=== PATIENT | female | born 1995 | race American Indian/Alaskan Native ===

== ENCOUNTER 2017-02-04 15:44 | Emergency (ER) | payer SELFPAY | END 2017-02-04 15:45 | disposition left against medical advice (07) | LOC: ED 15:44 | DX: O26.891 Other specified pregnancy related conditions, first trimester (principal); R53.1 Weakness; Z3A.01 Less than 8 weeks gestation of pregnancy; Z53.21 Procedure and treatment not carried out due to patient leaving prior to being seen by health care provider ==

== ENCOUNTER 2017-09-20 11:44 | Outpatient (CLI) | payer MEDICAID ==
[2017-09-20] MEDS ORDERED: LACTATED RINGERS 1,000 ML IV ONE (14:00)
[2017-09-20 18:22] LABS: Hematocrit 36.4 % (30.3-42.9); Hemoglobin 11.8 gm/dl (10.1-14.3); Mean Corpuscular HGB Conc 32 % (30-34); Mean Corpuscular Hemoglobin 27 pg (28-32); Mean Corpuscular Volume 83 fl (79-97); Platelet Count 261 K/mm3 (140-440); Red Blood Count 4.38 M/mm3 (3.65-5.03); White Blood Count 5.9 K/mm3 (4.5-11.0)
[2017-09-20 18:29] LABS: Bilirubin,Urine NEG (Negative); Blood,Urine NEG (Negative); Ketones,Urine 80 mg/dL (Negative); Leukocyte Esterase,Urine NEG (Negative); Mucus,Urine 2+ /HPF; Nitrite,Urine NEG (Negative); Urobilinogen,Urine < 2.0 mg/dL (<2.0)
[2017-09-20 18:38] LABS: Alanine Aminotransferase 6 units/L (7-56); Albumin 3.3 g/dL (3.9-5); Albumin/Globulin Ratio 1.1 %; Alkaline Phosphatase 182 units/L (35-129); Anion Gap 24 mmol/L; BUN/Creatinine Ratio 9; Blood Urea Nitrogen 6 mg/dL (7-17); Calcium 9.3 mg/dL (8.4-10.2); Carbon Dioxide 16 mmol/L (22-30); Chloride 97.2 mmol/L (98-107); Glucose 57 mg/dL (65-100); Potassium 4.2 mmol/L (3.6-5.0); Sodium 133 mmol/L (137-145); Total Protein 6.4 g/dL (6.3-8.2)
[2017-09-20 19:14] VITALS: BP 109/57
== END 2017-09-20 20:20 | disposition home or self-care (01) ==
LOC: SPVWC 11:44 → TRG 11:44
PROVIDERS: ATTEND Obstetrics & Gynecology
DX: O47.1 False labor at or after 37 completed weeks of gestation (principal); Z3A.39 39 weeks gestation of pregnancy
CPT/HCPCS: 36415; 59025; 80053; 81001; 84439; 84443; 85027; 96360

== ENCOUNTER 2017-09-25 03:01 | Outpatient (CLI) | payer MEDICAID ==
[2017-09-25] MEDS ORDERED: VISTARIL PO ONE (04:23)
[2017-09-25] MEDS ORDERED: VISTARIL ONE (04:23)
[2017-09-25 05:07] VITALS: BP 102/68
== END 2017-09-25 04:24 | disposition home or self-care (01) ==
LOC: TRG 03:01
PROVIDERS: ATTEND Obstetrics & Gynecology
DX: O48.0 Post-term pregnancy (principal); Z3A.40 40 weeks gestation of pregnancy
CPT/HCPCS: Q0177

== ENCOUNTER 2017-09-27 05:37 | Inpatient (IN) | payer MEDICAID ==
[2017-09-27] MEDS ORDERED: LACTATED RINGERS 1,000 ML ONE (06:32)
--- NOTE | 2017-09-27 07:00 | History and Physical Report ---
History of Present Illness Date of examination: 09/27/17 Date of admission: 09/27/17 06:17 Chief complaint: Painful contractions History of present illness: 22-year-old at 40+5 weeks presents in active labor, she is a [facility] patient. course has been unremarkable per patient, GBS unknown. In triage, she is 3-4 cm dilated Past History Past Medical History: no pertinent history Past Surgical History: no surgical history [employer] History: chlamydia. denies: gonorrhea, hepatitis B, hepatitis C, HIV, syphilis, trichomonas Social history: single, full code. denies: smoking, alcohol abuse, prescription drug abuse, IV drug use - Obstetrical History Expected Date of Delivery: 09/22/17 Actual Gestation: 40 Week(s) 5 Day(s) : 2 Para: 0 Medications and Allergies Allergies Allergy/AdvReac Type Severity Reaction Status Date / Time coconut Allergy Anaphylaxis Verified 09/27/17 05:59 codeine Allergy N/V Verified 11/14/14 15:03 Home Medications Medication Instructions Recorded Confirmed Last Taken Type Ibuprofen [Motrin] 600 mg PO Q6H PRN #15 tablet 03/10/16 Unknown Rx Review of Systems Constitutional: no fever, no chills, no fatigue, no weakness, no lethargy Cardiovascular: no chest pain, no orthopnea, no palpitations, no syncope, no lightheadedness, no shortness of breath, no dyspnea on exertion, no high blood pressure Respiratory: no cough, no cough with sputum, no shortness of breath, no dyspnea on exertion Gastrointestinal: abdominal pain (Painful contractions), no nausea, no vomiting , no heartburn, no indigestion, no dyspepsia/bloating Genitourinary: contractions, no vaginal bleeding, no vaginal discharge, no leakage of fluid - Vital Signs Vital signs: Vital Signs Pulse BP Pulse Ox 92 H 116/81 100 09/27/17 05:55 09/27/17 05:55 09/27/17 05:55 Temp Pulse Resp BP Pulse Ox 97.4 F L 72 18 116/81 100 09/27/17 06:00 09/27/17 06:55 09/27/17 06:00 09/27/17 05:55 09/27/17 06:55 - Physical Exam Cardiovascular: Regular rate, Normal S1, Normal S2 Lungs: Positive: Clear to auscultation, Normal air movement Abdomen: Positive: normal appearance, soft. Negative: distention, tenderness, guarding, rigidity Genitourinary (Female): Positive: normal external genitalia Vulva: both: normal Vagina: Negative: discharge Uterus: Positive: enlarged (EFW ~ 3500) Adnexa: both: normal Extremities: Positive: normal Results All other labs normal. Assessment and Plan A: 22-year-old at 40 and 5 in active labor -Cat 1 tracing P: -Admit -Routine labs -Anticipate normal vaginal delivery - Patient Problems (1) 40 weeks gestation of Current Visit: Yes Status: Acute (2) Active labor at term Current Visit: Yes Status: Acute
[2017-09-27] MEDS ORDERED: PHENERGAN PO PRN ×2 (07:01→11:19)
[2017-09-27] MEDS ORDERED: BRETHINE IVP PRN (07:01)
[2017-09-27] MEDS ORDERED: NARCAN 0.4 MG/1 ML IV PRN (07:01)
[2017-09-27] MEDS ORDERED: BRETHINE SUB-Q PRN (07:01)
[2017-09-27] MEDS ORDERED: SUBLIMAZE IV PRN (07:01)
[2017-09-27] MEDS ORDERED: MINERAL OIL PO PRN (07:01)
[2017-09-27] MEDS ORDERED: ePHEDrine SULFATE IV PRN ×2 (07:01→10:37)
[2017-09-27] MEDS ORDERED: POLYCILLIN/NS 2 GM/100 ML 2 GM/100 ML BAG IV ONE (07:01)
[2017-09-27] MEDS ORDERED: XYLOCAINE 2% INFILTRATI ONE (07:01)
[2017-09-27] MEDS ORDERED: ZOFRAN IV PRN ×2 (07:01→11:19)
[2017-09-27] MEDS ORDERED: LACTATED RINGERS 1,000 ML IV SCH (08:00)
[2017-09-27] MEDS ORDERED: PITOCin/NS 20 UNIT/1000ML DRIP 20 UNITS/1,000 ML BAG IV SCH ×2 (08:00→12:00)
[2017-09-27] MEDS ORDERED: PITOCin/NS 30 UNIT/500ML 30 UNITS/500 ML BAG IV SCH ×2 (08:00)
[2017-09-27 08:01] LABS: Hematocrit 36.3 % (30.3-42.9); Hemoglobin 12.3 gm/dl (10.1-14.3); Mean Corpuscular HGB Conc 34 % (30-34); Mean Corpuscular Hemoglobin 28 pg (28-32); Mean Corpuscular Volume 82 fl (79-97); Platelet Count 298 K/mm3 (140-440); Red Blood Count 4.41 M/mm3 (3.65-5.03); Red Cell Distribution Width 13.8 % (13.2-15.2)
--- NOTE | 2017-09-27 09:30 | Progress Note ---
Assessment and Plan - Patient Problems (1) 40 weeks gestation of Current Visit: Yes Status: Acute (2) Active labor at term Current Visit: Yes Status: Acute Subjective - Subjective Date of service: 09/27/17 Interval history: Patient known 7 cm and -1 station. AROMed with clear fluid Patient reports: new complaints, loss of fluid, movement normal, contractions, no vaginal bleeding Objective - Vital Signs Vital Signs: Vital Signs - 12hr 09/27/17 09/27/17 09/27/17 05:55 06:00 06:05 Temperature 97.4 F L Pulse Rate 92 H 72 83 Respiratory 18 Rate Blood Pressure 116/81 O2 Sat by Pulse 100 99 100 Oximetry 09/27/17 09/27/17 09/27/17 06:10 06:15 06:20 Temperature Pulse Rate 89 82 95 H Respiratory Rate Blood Pressure O2 Sat by Pulse 100 100 100 Oximetry 09/27/17 09/27/17 09/27/17 06:25 06:30 06:35 Temperature Pulse Rate 78 100 H 91 H Respiratory Rate Blood Pressure O2 Sat by Pulse 100 100 100 Oximetry 09/27/17 09/27/17 09/27/17 06:40 06:45 06:50 Temperature Pulse Rate 87 89 75 Respiratory Rate Blood Pressure O2 Sat by Pulse 100 99 100 Oximetry 09/27/17 09/27/17 09/27/17 06:55 07:00 07:22 Temperature Pulse Rate 72 78 75 Respiratory Rate Blood Pressure 162/94 O2 Sat by Pulse 100 100 100 Oximetry 09/27/17 09/27/17 09/27/17 07:27 07:36 07:38 Temperature 98.7 F Pulse Rate 96 H 71 Respiratory 18 Rate Blood Pressure 131/85 O2 Sat by Pulse 100 Oximetry 09/27/17 09/27/17 09/27/17 07:39 07:53 08:07 Temperature Pulse Rate 71 72 75 Respiratory Rate Blood Pressure 132/84 111/60 116/57 O2 Sat by Pulse Oximetry 09/27/17 09/27/17 09/27/17 08:22 08:38 08:53 Temperature Pulse Rate 78 90 98 H Respiratory Rate Blood Pressure 152/95 178/112 175/105 O2 Sat by Pulse Oximetry - Exam FHR: category 1 Cervical Dilatation: 7 station: -1 - Labs Labs: Laboratory Results - last 24 hr 09/27/17 09/27/17 06:27 06:27 WBC 7.9 RBC 4.41 Hgb 12.3 Hct 36.3 MCV 82 MCH 28 MCHC 34 RDW 13.8 Plt Count 298 Blood Type O POSITIVE Antibody Screen Negative
[2017-09-27] MEDS ORDERED: NARCAN 2 MG/2 ML IV PRN (10:37)
--- NOTE | 2017-09-27 10:38 | Anesthesia Consultation ---
Anesthesia Consult and Med Hx Date of service: 09/27/17 - Airway Anesthetic Teeth Evaluation: Good ROM Head & Neck: Adequate Mental/Hyoid Distance: Adequate Mallampati Class: Class II Intubation Access Assessment: Probably Good - Pulmonary Exam CTA: Yes - Cardiac Exam Cardiac Exam: RRR - Pre-Operative Health Status ASA Pre-Surgery Classification: ASA2 Proposed Anesthetic Plan: Epidural, Spinal - Pulmonary Hx Asthma: No COPD: No Hx Pneumonia: No - Cardiovascular System Hx Hypertension: No Hx Heart Attack/AMI: No Hx Pacemaker: No Hx Internal Defibrillator: No - Central Nervous System Hx Seizures: No Hx Psychiatric Problems: No - Endocrine Hx Renal Disease: No Hx End Stage Renal Disease: No Hx Liver Disease: No Hx Hypothyroidism: No Hx Hyperthyroidism: No - Hematic Hx Anemia: No Hx Sickle Cell Disease: No - Other Systems Hx Alcohol Use: No Hx Obesity: Yes - Additional Comments Anesthesia Medical History Comments: +IUP
[2017-09-27] MEDS ORDERED: fentaNYL-BUPIV 2 MCG/ML-0.125% 200 MCG/100 ML BAG EPIDURAL SCH (11:00)
[2017-09-27] MEDS ORDERED: POLYCILLIN/NS 1 GM/50 ML 1 GM/50 ML BAG IV SCH (11:02)
--- NOTE | 2017-09-27 11:18 | Procedure Note ---
OB Delivery Note - Delivery Date of Delivery: 09/27/17 Surgeon: GUERITA MRA Estimated blood loss: 100cc - Vaginal Delivery presentation: vertex Delivery position: OA Intrapartum events: none Delivery induction: none Delivery augmentation: pitocin Delivery monitor: external FHT, external uterine Route of delivery: Delivery placenta: spontaneous Delivery cord: 3 umbilical vessels Episiotomy: none Delivery laceration: 1st degree Delivery repair: vicryl Anesthesia: epidural - Infant A at 1 minute: 8 at 5 minutes: 9 Gender: Male (time of delivery 11:09, infant weight 6 lbs. 8 oz. or 2938 g)
[2017-09-27] MEDS ORDERED: TUCKS PAD TP PRN (11:19)
[2017-09-27] MEDS ORDERED: DULCOLAX PR PRN (11:19)
[2017-09-27] MEDS ORDERED: BENADRYL PO PRN (11:19)
[2017-09-27] MEDS ORDERED: LANSINOH TP PRN (11:19)
[2017-09-27] MEDS ORDERED: PHENERGAN PR PRN (11:19)
[2017-09-27] MEDS ORDERED: ANUCORT-HC PR PRN (11:19)
[2017-09-27] MEDS ORDERED: NORCO 5/325 PO PRN (11:19)
[2017-09-27] MEDS ORDERED: MILK OF MAGNESIA PO PRN (11:19)
[2017-09-27] MEDS ORDERED: TYLENOL PO PRN (11:19)
[2017-09-27] MEDS ORDERED: SODIUM CHLORIDE FLUSH SYRINGE 10 ML IV NR (12:00)
[2017-09-27] MEDS ORDERED: SENOKOT S PO SCH (12:00)
[2017-09-27] MEDS: MOTRIN PO SCH ×2 (15:21→23:08)
[2017-09-27] MEDS: FEOSOL PO SCH (23:09)
[2017-09-27] MEDS: COLACE PO SCH (23:09)
[2017-09-28] LABS: Hematocrit 34.1 % (30.3-42.9); Hemoglobin 11.2 gm/dl (10.1-14.3)
[2017-09-28] MEDS: MOTRIN PO SCH ×3 (05:16→18:25)
--- NOTE | 2017-09-28 09:48 | Progress Note ---
Assessment and Plan A: PPD 1 - stable P: Continue routine PP orders Discharge in AM 09/29/17 F/U in 6 wks for PP exam Schedule appt in 1 week for Linch circumcision Subjective - Subjective Date of service: 09/28/17 Principal diagnosis: , PPD #1 Patient reports: appetite normal, voiding normally, pain well controlled, ambulating normally, no bowel movement : doing well, nursing well, bottle feeding Objective - Vital Signs Latest vital signs: Vital Signs Temp Pulse Resp BP BP Pulse Ox 09/28/17 08:00 97.9 F 66 18 107/61 09/27/17 17:02 98.2 F 67 20 140/86 100 09/27/17 12:35 89 122/81 09/27/17 12:30 69 116/72 09/27/17 12:25 78 110/71 09/27/17 12:20 92 H 111/68 09/27/17 12:15 82 116/77 09/27/17 12:10 71 108/56 09/27/17 12:05 82 108/67 09/27/17 12:00 83 108/55 09/27/17 11:55 88 100/61 09/27/17 11:50 81 114/62 09/27/17 11:45 82 114/60 09/27/17 11:40 88 109/56 09/27/17 11:35 88 111/65 09/27/17 11:30 95 H 109/59 09/27/17 11:25 100 H 114/56 09/27/17 11:20 91 H 117/56 09/27/17 11:06 105 H 100 09/27/17 11:01 95 H 100 09/27/17 10:56 85 100 09/27/17 10:53 94 H 108/57 09/27/17 10:51 87 111/60 100 09/27/17 10:49 87 111/57 09/27/17 10:47 77 104/52 09/27/17 10:46 76 100 09/27/17 10:45 78 108/57 09/27/17 10:44 82 106/52 09/27/17 10:42 103 H 93/46 09/27/17 10:41 110 H 99 09/27/17 10:39 86 120/63 09/27/17 10:36 97 H 145/73 100 01/01/18 10:34 91 H 152/82 09/27/17 10:31 85 139/72 09/27/17 10:30 94 H 142/74 100 09/27/17 09:53 87 143/70 Intake and Output 09/27/17 09/28/17 09/28/17 23:59 07:59 15:59 Intake Total 480 Output Total 1500 800 Balance -1020 -800 Intake: Oral 480 Output: Urine 1500 800 Void 1500 800 Other: Total, Intake Amount 240 Total, Output Amount 800 800 # Voids Void 1 - Exam Cardiovascular: Present: Regular rate, Normal S1, Normal S2, No murmurs Lungs: Present: Clear to auscultation, Normal air movement Abdomen: Present: normal appearance, soft Vulva: both: laceration/episiotomy (well approximated) Uterus: Present: normal, firm, fundal height below umbilicus Extremities: Present: normal Deep Tendon Reflex Grade: Normal +2
--- NOTE | 2017-09-28 09:57 | Discharge Summary ---
Providers - Providers Date of Admission: 09/27/17 06:17 Date of discharge: 09/29/17 Attending physician: PAUL ANDRADE MD Primary care physician: PAUL ANDRADE MD Hospitalization Reason for admission: active labor, IUP at term Delivery: Episiotomy: none Laceration: 1st degree Other procedures: none complications: none Discharge diagnosis: IUP at term delivered [place] baby: male Hospital course: Uncomplicated Condition at discharge: Good Disposition: DC-01 TO HOME OR SELFCARE Plan - Discharge Medications Prescriptions: HYDROcodone/APAP 5-325 [[place] 5/325] 1 each PO Q6HR PRN #7 tablet PRN Reason: Pain Ibuprofen [Motrin 600 MG tab] 600 mg PO Q8H PRN #30 tablet PRN Reason: Pain Multivitamin with Iron [Multivitamins with Iron] 1 each PO DAILY #30 tablet - Provider Discharge Summary Activity: routine, no sex for 6 weeks, no heavy lifting 4 weeks, no strenuous exercise Diet: routine Instructions: routine Additional instructions: [] Smoking cessation referral if applicable(refer to patient education folder for contact #) [] Refer to [facility] Booklet Call your doctor immediately for: * Fever > 100.5 * Heavy vaginal bleeding ( >1 pad per hour) * Severe persistent headache * Shortness of breath * Reddened, hot, painful area to leg or breast * Drainage or odor from incision. * Keep incision clean and dry at all times and follow doctor's instructions regarding bathing/showering - Follow up plan Follow up: PAUL ANDRADE MD [Primary Care Provider] - 6 Weeks (F/U in 6 weeks for PP exam)
[2017-09-28] MEDS: COLACE PO SCH (10:59)
[2017-09-28] MEDS: PRENATAL VITAMIN PO SCH (11:00)
[2017-09-28] MEDS: FEOSOL PO SCH (11:00)
[2017-09-28] MEDS ORDERED: M-M-R II VACCINE SUB-Q ONE (11:19)
[2017-09-28] MEDS ORDERED: BOOSTRIX IM ONE (11:19)
[2017-09-29] MEDS: MOTRIN PO SCH ×2 (00:30→05:30)
[2017-09-29] MEDS: FEOSOL PO SCH (10:45)
[2017-09-29] MEDS: COLACE PO SCH (10:45)
[2017-09-29] MEDS: PRENATAL VITAMIN PO SCH (10:45)
[2017-09-29 13:56] VITALS: BP 125/82
== END 2017-09-29 15:10 | disposition home or self-care (01) | DRG 775 ==
LOC: TRG 05:37 → LD 06:17 → TRG 06:17 → OB 15:08
PROVIDERS: ADMIT Obstetrics & Gynecology; ATTEND Obstetrics & Gynecology
PROC: 10E0XZZ Delivery of Products of Conception, External Approach (ICD-10-PCS; principal; 2017-09-27)
PROC: 10907ZC Drainage of Amniotic Fluid, Therapeutic from Products of Conception, Via Natural or Artificial Opening (ICD-10-PCS; 2017-09-27)
PROC: 0HQ9XZZ Repair Perineum Skin, External Approach (ICD-10-PCS; 2017-09-27)
PROC: 3E0R3BZ Introduction of Anesthetic Agent into Spinal Canal, Percutaneous Approach (ICD-10-PCS; 2017-09-27)
PROC: 00HU33Z Insertion of Infusion Device into Spinal Canal, Percutaneous Approach (ICD-10-PCS; 2017-09-27)
PROC: 3E0234Z Introduction of Serum, Toxoid and Vaccine into Muscle, Percutaneous Approach (ICD-10-PCS; 2017-09-28)
DX: O99.214 Obesity complicating childbirth (principal); E66.9 Obesity, unspecified; O70.0 First degree perineal laceration during delivery; Z37.0 Single live birth; Z3A.40 40 weeks gestation of pregnancy; Z23 Encounter for immunization; Z68.34 Body mass index [BMI] 34.0-34.9, adult
CPT/HCPCS: 36415; 85014; 85018; 85027; 86592; 86850; 86900; 86901; 99211; A6250; G0463; J0290; J2590; J3010; J7120

== ENCOUNTER 2018-10-18 22:22 | Emergency (ER) | payer MEDICAID ==
[2018-10-18 22:55] VITALS: BP 129/75
[2018-10-19] MEDS ORDERED: DECADRON IM ONE (00:20)
[2018-10-19] MEDS ORDERED: TRIMOX PO ONE (00:20)
[2018-10-19] MEDS ORDERED: IBUPROFEN PO ONE (00:20)
--- NOTE | 2018-10-19 00:26 | Emergency Department Report ---
- General Chief Complaint: Fever Stated Complaint: FLU , DALY Time Seen by Provider: 10/18/18 23:28 Source: patient Mode of arrival: Ambulatory Limitations: No Limitations - History of Present Illness Initial Comments: Patient is a 23-year-old female who presents for sore throat and fever 3 days postnasal drip clear history of strep throat complains of dysphagia with swallowing only no nausea vomiting no abdominal pain no back pain or wheezing symptoms are exacerbated by swallowing symptoms are relieved by nothing tried temp is 100.1 Fahrenheit in triage today MD Complaint: fever, sore throat, rhinorrhea Onset/Timin -: days(s) Severity: moderate Severity scale (0 -10): 5 Quality: burning, sharp Consistency: intermittent Improves With: nothing Worsens With: other (swallowing ) Context: sick contacts Associated Symptoms: fever, chills, rhinorrhea, nasal congestion, sore throat. denies: stiff neck, cough, chest pain, shortness of breath, abdominal pain, nausea, vomiting, diarrhea, dysuria, rash, confusion, right sweats, weight loss, epistaxis, hoarseness, ear pain Treatments Prior to Arrival: none - Related Data Previous Rx's Medication Instructions Recorded Last Taken Type Ibuprofen [Motrin] 600 mg PO Q6H PRN #15 tablet 03/10/16 Unknown Rx HYDROcodone/APAP 5-325 [[place] 1 each PO Q6HR PRN #7 tablet 09/27/17 Unknown Rx 5/325] Ibuprofen [Motrin 600 MG tab] 600 mg PO Q8H PRN #30 tablet 09/27/17 Unknown Rx Multivitamin with Iron 1 each PO DAILY #30 tablet 09/27/17 Unknown Rx [Multivitamins with Iron] Lidocaine Viscous 2% 5 ml MM Q3H PRN #120 udc 08/03/18 Unknown Rx Diphenoxylate/Atropine [Lomotil] 1 tab PO QID PRN #12 tablet 09/20/18 Unknown Rx Naproxen 500 mg PO BID PRN #30 tablet 09/20/18 Unknown Rx Amoxicillin 500 mg PO TID 10 Days #30 capsule 10/19/18 Unknown Rx Benzocaine/Menth/Cetylpyrd 1 each MM Q2H PRN #3 packet 10/19/18 Unknown Rx [Cepacol X Strength] Ibuprofen 800 mg PO TID PRN #30 tablet 10/19/18 Unknown Rx Allergies Allergy/AdvReac Type Severity Reaction Status Date / Time coconut Allergy Anaphylaxis Verified 08/03/18 14:20 codeine Allergy N/V Verified 08/03/18 14:20 ED Review of Systems ROS: Stated complaint: FLU , DALY Other details as noted in HPI Constitutional: denies: chills, fever Eyes: denies: eye pain, eye discharge, vision change ENT: throat pain, congestion Respiratory: denies: cough, shortness of breath, wheezing Cardiovascular: denies: chest pain, palpitations Endocrine: no symptoms reported Gastrointestinal: denies: abdominal pain, nausea, diarrhea Genitourinary: denies: urgency, dysuria, discharge Musculoskeletal: denies: back pain, joint swelling, arthralgia Skin: denies: rash, lesions Neurological: denies: headache, weakness, paresthesias Psychiatric: denies: anxiety, depression Hematological/Lymphatic: denies: easy bleeding, easy bruising ED Past Medical Hx - Past Medical History Hx Hypertension: No Hx CVA: No Hx Heart Attack/AMI: No Hx Congestive Heart Failure: No Hx Diabetes: No Hx Deep Vein Thrombosis: No Hx Pulmonary Embolism: No Hx GERD: No Hx Liver Disease: No Hx Renal Disease: No Hx Sickle Cell Disease: No Hx Arthritis: No Hx Headaches / Migraines: No Hx Seizures: No Hx Kidney Stones: No Hx Psychiatric Treatment: No Hx Asthma: No Hx COPD: No Hx Tuberculosis: No Hx Dementia: No Hx HIV: No - Surgical History Hx Coronary Stent: No Hx Open Heart Surgery: No Hx Pacemaker: No Hx Internal Defibrillator: No Hx Cholecystectomy: No Hx Appendectomy: No Hx Breast Surgery: No - Social History Smoking Status: Current Every Day Smoker Substance Use Type: None - Medications Home Medications: Home Medications Medication Instructions Recorded Confirmed Last Taken Type Ibuprofen [Motrin] 600 mg PO Q6H PRN #15 tablet 03/10/16 09/27/17 Unknown Rx HYDROcodone/APAP 5-325 [[place] 1 each PO Q6HR PRN #7 tablet 09/27/17 Unknown Rx 5/325] Ibuprofen [Motrin 600 MG tab] 600 mg PO Q8H PRN #30 tablet 09/27/17 Unknown Rx Multivitamin with Iron 1 each PO DAILY #30 tablet 09/27/17 Unknown Rx [Multivitamins with Iron] Lidocaine Viscous 2% 5 ml MM Q3H PRN #120 udc 08/03/18 Unknown Rx Diphenoxylate/Atropine [Lomotil] 1 tab PO QID PRN #12 tablet 09/20/18 Unknown Rx Naproxen 500 mg PO BID PRN #30 tablet 09/20/18 Unknown Rx Amoxicillin 500 mg PO TID 10 Days #30 capsule 10/19/18 Unknown Rx Benzocaine/Menth/Cetylpyrd 1 each MM Q2H PRN #3 packet 10/19/18 Unknown Rx [Cepacol X Strength] Ibuprofen 800 mg PO TID PRN #30 tablet 10/19/18 Unknown Rx ED Physical Exam - General Limitations: No Limitations General appearance: alert, in no apparent distress - Head Head exam: Present: atraumatic, normocephalic - Eye Eye exam: Present: normal appearance, PERRL, EOMI Pupils: Present: normal accommodation - ENT ENT exam: Present: mucous membranes moist, TM's normal bilaterally, normal external ear exam - Expanded ENT Exam Expanded Ear exam: Present: normal external inspection Mouth exam: Present: normal external inspection Throat exam: Positive: tonsillar erythema, tonsillomegaly, tonsillar exudate, other (uvula midline no stridor ). Negative: R peritonsillar mass, L peritonsillar mass - Neck Neck exam: Present: normal inspection, full ROM. Absent: tenderness, meningismus, lymphadenopathy, thyromegaly - Respiratory Respiratory exam: Present: normal lung sounds bilaterally. Absent: respiratory distress, wheezes, stridor, chest wall tenderness - Cardiovascular Cardiovascular Exam: Present: regular rate, normal rhythm, normal heart sounds. Absent: systolic murmur, diastolic murmur, rubs, gallop - GI/Abdominal GI/Abdominal exam: Present: soft, normal bowel sounds. Absent: tenderness, mass, hernia - Rectal Rectal exam: Present: deferred - Extremities Exam Extremities exam: Present: normal inspection - Back Exam Back exam: Present: normal inspection. Absent: full ROM, tenderness, CVA tenderness (R), CVA tenderness (L) - Neurological Exam Neurological exam: Present: alert, oriented X3, normal gait - Psychiatric Psychiatric exam: Present: normal affect, normal mood - Skin Skin exam: Present: warm, dry, intact, normal color. Absent: rash ED Course Vital Signs 10/18/18 22:51 Temperature 100.1 F H Pulse Rate 76 Respiratory 18 Rate Blood Pressure 129/75 O2 Sat by Pulse 96 Oximetry ED Medical Decision Making - Lab Data Labs 10/18/18 23:30 Group A Strep Rapid Positive A - Medical Decision Making this is pharyngitis plan amoxicillin, decadron, ibuprofen, follow up with pcp in 2-3 days continue to hydrate return to ed if symptoms worsen, pt verbalized agreement and understanding of discharge plan. Critical care attestation.: If time is entered above; I have spent that time in minutes in the direct care of this critically ill patient, excluding procedure time. ED Disposition Clinical Impression: Pharyngitis Qualifiers: Pharyngitis/tonsillitis etiology: streptococcus Qualified Code(s): J02.0 - Streptococcal pharyngitis Disposition: TO HOME OR SELFCARE Is pt being admited?: No Does the pt Need Aspirin: No Condition: Stable Instructions: Strep Throat (ED) Prescriptions: Amoxicillin 500 mg PO TID 10 Days #30 capsule Benzocaine/Menth/Cetylpyrd [Cepacol X Strength] 1 each MM Q2H PRN #3 packet PRN Reason: pain sore throat Ibuprofen 800 mg PO TID PRN #30 tablet PRN Reason: pain fever Referrals: PRADEEP HAIRSTON MD [Primary Care Provider] - 3-5 Days Forms: Work/School Release Form(ED) Time of Disposition: 00:31
== END 2018-10-19 01:10 | disposition home or self-care (01) ==
LOC: ED 22:22
DX: J02.0 Streptococcal pharyngitis (principal); F17.200 Nicotine dependence, unspecified, uncomplicated
CPT/HCPCS: 87430; 96372; 99283; J1100

== ENCOUNTER 2021-01-09 12:14 | Outpatient (CLI) | payer MEDICAID ==
[2021-01-09 13:14] LABS: Basophils # (Auto) 0.1 K/mm3 (0.0-0.1); Basophils % (Auto) 1.5 % (0.0-1.8); Eosinophils # (Auto) 0.3 K/mm3 (0.0-0.4); Eosinophils % (Auto) 4.6 % (0.0-4.3); Hematocrit 39.1 % (30.3-42.9); Lymphocytes # (Auto) 1.9 K/mm3 (1.2-5.4); Lymphocytes % (Auto) 26.8 % (13.4-35.0); Mean Corpuscular HGB Conc 33 % (30-34); Mean Corpuscular Volume 82 fl (79-97); Monocytes # (Auto) 0.5 K/mm3 (0.0-0.8); Platelet Count 360 K/mm3 (140-440); Red Blood Count 4.78 M/mm3 (3.65-5.03); Red Cell Distribution Width 13.7 % (13.2-15.2)
[2021-01-09 13:46] LABS: Alanine Aminotransferase 7 units/L (7-56); Albumin 3.8 g/dL (3.9-5); BUN/Creatinine Ratio 11; Blood Urea Nitrogen 10 mg/dL (7-17); Calcium 9.3 mg/dL (8.4-10.2); Chol/HDL Ratio 4.26 %; HDL Cholesterol 42 mg/dL (40-59); Hemolysis Index 10; LDL Cholesterol,Direct 137 mg/dL (50-130)
[2021-01-09 14:30] LABS: Bilirubin,Urine NEG (Negative); Blood,Urine NEG (Negative); Color,Urine Yellow (Yellow); Mucus,Urine FEW /HPF; Protein,Urine <15 mg/dL mg/dL (Negative); Urobilinogen,Urine < 2.0 mg/dL (<2.0); WBC,Urine < 1.0 /HPF (0.0-6.0)
== END 2021-01-09 12:15 | disposition home or self-care (01) ==
LOC: LAB 12:14
PROVIDERS: ATTEND Internal Medicine
DX: Z00.00 Encounter for general adult medical examination without abnormal findings (principal); Z13.1 Encounter for screening for diabetes mellitus; Z13.220 Encounter for screening for lipoid disorders; Z13.29 Encounter for screening for other suspected endocrine disorder; N39.0 Urinary tract infection, site not specified; E00.9 Congenital iodine-deficiency syndrome, unspecified
CPT/HCPCS: 36415; 80053; 80061; 81001; 82306; 83036; 84443; 85025